=== PATIENT | male | born 1990 | race Caucasian/White ===

== ENCOUNTER 2017-06-11 00:37 | Emergency (ER) | payer OTHER ==
[~2017-06-11] VITALS: Ht 188 cm; Wt 83.9 kg
[2017-06-11 01:18] VITALS: BP 132/95
== END 2017-06-11 03:08 | disposition home or self-care (01) ==
LOC: ER 00:37
DX: S93.401A Sprain of unspecified ligament of right ankle, initial encounter (principal); X58.XXXA Exposure to other specified factors, initial encounter; Y93.89 Activity, other specified; Y92.89 Other specified places as the place of occurrence of the external cause; Y99.8 Other external cause status
CPT/HCPCS: 29515; 73610